=== PATIENT | female | born 2000 | race American Indian/Alaskan Native ===

== ENCOUNTER 2021-12-28 21:17 | Emergency (ER) | payer MEDICAID ==
[2021-12-28 22:17] VITALS: BP 99/68
[2021-12-28 23:26] LABS: Basophils % (Auto) 0.3 % (0.0-1.8); Eosinophils # (Auto) 0.2 K/mm3 (0.0-0.4); Eosinophils % (Auto) 2.3 % (0.0-4.3); Hematocrit 38.4 % (30.3-42.9); Hemoglobin 13.2 gm/dl (10.1-14.3); Lymphocytes # (Auto) 3.2 K/mm3 (1.2-5.4); Lymphocytes % (Auto) 44.1 % (13.4-35.0); Mean Corpuscular HGB Conc 34 % (30-34); Mean Corpuscular Volume 91 fl (79-97); Monocytes # (Auto) 0.6 K/mm3 (0.0-0.8); Monocytes % (Auto) 8.4 % (0.0-7.3); Platelet Count 193 K/mm3 (140-440); Red Blood Count 4.22 M/mm3 (3.65-5.03); Red Cell Distribution Width 15.1 % (13.2-15.2)
[2021-12-28 23:50] LABS: Blood Urea Nitrogen 12 mg/dL (7-17); Calcium 9.2 mg/dL (8.4-10.2); Hemolysis Index 12
[2021-12-28 23:51] LABS: BUN/Creatinine Ratio 20
[2021-12-29 01:04] LABS: Bilirubin,Urine NEG (Negative); Blood,Urine MOD (Negative); Color,Urine Yellow (Yellow)
[2021-12-29 01:12] LABS: HCG Qualitative,Urine Negative (Negative)
[2021-12-29 01:13] LABS: Amphetamine Screen,Urine PRESUMPTIVE NEGATIVE; Benzodiazepines Screen,Urine PRESUMPTIVE NEGATIVE; Cannabinoid Screen,Urine PRESUMPTIVE NEGATIVE; Cocaine Screen,Urine PRESUMPTIVE NEGATIVE; Methadone Screen,Urine PRESUMPTIVE NEGATIVE; Opiate Screen,Urine PRESUMPTIVE NEGATIVE
[2021-12-29 01:18] LABS: Mucus,Urine 2+ /HPF
--- NOTE | 2021-12-29 05:16 | Emergency Department Report ---
ED Psych HPI - General Chief Complaint: Psych Stated Complaint: DETOX EVAL Time Seen by Provider: 12/29/21 00:38 Source: patient Mode of arrival: Ambulatory - History of Present Illness Initial Comments: Patient is a 21-year-old female presenting to ED with thoughts of harming he rself and others. - Related Data Allergies Allergy/AdvReac Type Severity Reaction Status Date / Time No Known Allergies Allergy Unverified 12/28/21 22:17 ED Review of Systems ROS: Stated complaint: DETOX EVAL Other details as noted in HPI Constitutional: denies: chills, fever Respiratory: denies: cough, shortness of breath, wheezing Cardiovascular: denies: chest pain, palpitations Gastrointestinal: denies: abdominal pain, nausea, diarrhea Genitourinary: denies: urgency, dysuria, discharge Musculoskeletal: denies: back pain, joint swelling, arthralgia Skin: denies: rash, lesions Neurological: denies: headache, weakness, paresthesias Psychiatric: denies: anxiety, depression ED Past Medical Hx - Social History Smoking Status: Current Some Day Smoker ED Physical Exam - General Limitations: No Limitations General appearance: alert, in no apparent distress - Head Head exam: Present: atraumatic, normocephalic - Respiratory Respiratory exam: Present: normal lung sounds bilaterally. Absent: respiratory distress - Cardiovascular Cardiovascular Exam: Present: regular rate, normal rhythm, normal heart sounds - GI/Abdominal GI/Abdominal exam: Present: soft. Absent: distended, tenderness - Rectal Rectal exam: Present: deferred - Neurological Exam Neurological exam: Present: alert, oriented X3, CN II-XII intact - Psychiatric Psychiatric exam: Present: homicidal ideation, suicidal ideation - Skin Skin exam: Present: warm, dry, intact, normal color ED Course Vital Signs 12/28/21 12/29/21 22:15 01:31 Temperature 98.3 F Pulse Rate 74 Respiratory 16 Rate Blood Pressure 99/68 O2 Sat by Pulse 100 97 Oximetry ED Medical Decision Making - Lab Data Result diagrams: 12/28/21 23:07 12/28/21 23:07 - Medical Decision Making Labs unremarkable. Patient medically cleared. 1013 signed. Awaiting mental health evaluation Critical care attestation.: If time is entered above; I have spent that time in minutes in the direct care of this critically ill patient, excluding procedure time. ED Disposition Clinical Impression: Suicidal ideation, Homicidal ideation Disposition: 30 STILL A PATIENT Is pt being admited?: No Condition: Stable
--- NOTE | 2021-12-29 09:25 | Consultation ---
History of Present Illness - Reason for Consult Consult date: 12/29/21 Reason for consult: SI - History of Present Psychiatric Illness The patient was seen today. She is irritable and reluctant to cooperate. She is rude. The patient is evasive. She says she is from [facility]. I ask her what was substance was she there for. She initially says "I wasn't ad dicted to anything so I don't know why I'm there. I didn't relapse on nothing." She then says "well I was on RP 15." I ask the patient what was that. She replies "aren't you a doctor. It's something like Soniya." She is asking to go smoke. I inform the patient that this is a smoke free facility and I would give her a patch. The patient denies SI/HI. I ask her was she when she came in. She says "I need to talk to somebody about my medicine. I have ADHD and Bipolar." She says she takes sertraline, concerta and risperidone. She says "you don't have to give me the Concerta, but I'll take another ADHD med." I inform the patient she has to get that from per outpatient provider. She becomes irritable. REVIEW OF SYSTEMS Constitutional: Negative for weight loss ENT: Negative for stridor Respiratory: Negative for cough or hemoptysis All other systems reviewed and are negative MENTAL STATUS EXAMINATION General Appearance and Behavior: Age appropriate, wearing appropriate clothes, reluctant to cooperate, irritable, evasive Cooperation: reluctant to cooperative Psychomotor Behavior: Psychomotor normal Mood: fine Affect and affective range: congruent with stated affect Thought Process: goal directed Thought Content: None Speech: Normal volume, Regular rate and rhythm Suicidal Ideation: Denies Homicidal Ideation: Denies Hallucination: Denies Delusions: Denies Impulse Control: Limited Insight and Judgment: Limited Memory: Limited Attention: distracted Orientation: a/o x 3 Diagnoses: Bipolar Disorder Treatment Plan Zoloft 25mg po daily Risperidone 0.5mg po BID Medical: per primary Sitter: defer to primary Disposition: Do not recommend acute psychiatric inpatient treatment. The patient understands that if SI/HI arise she is to seek immediate assistance The water and fire technician to give all necessary outpatient resources including rehab Will sign off. Thanks Case staffed with Dr. Turcios Medications and Allergies Allergies Allergy/AdvReac Type Severity Reaction Status Date / Time No Known Allergies Allergy Unverified 12/28/21 22:17 Mental Status Exam - Vital signs Last Vital Signs Temp 98.3 F 12/28/21 22:15 Pulse 74 12/28/21 22:15 Resp 16 12/28/21 22:15 BP 99/68 12/28/21 22:15 Pulse Ox 97 12/29/21 01:31 Results Result Diagrams: 12/28/21 23:07 12/28/21 23:07 Abnormal lab results 12/28/21 12/28/21 12/28/21 Range/Units 23:07 23:07 23:07 Lymph % (Auto) 44.1 H (13.4-35.0) % King % (Auto) 8.4 H (0.0-7.3) % Chloride 110.0 H (98-107) mmol/L U Epithel Cells (Auto) (0-13.0) /HPF Salicylates < 0.3 L (2.8-20.0) mg/dL Acetaminophen (10.0-30.0) ug/mL 12/28/21 12/29/21 Range/Units 23:07 00:37 Lymph % (Auto) (13.4-35.0) % King % (Auto) (0.0-7.3) % Chloride (98-107) mmol/L U Epithel Cells (Auto) 20.0 H (0-13.0) /HPF Salicylates (2.8-20.0) mg/dL Acetaminophen 5.0 L (10.0-30.0) ug/mL All other labs normal.
== END 2021-12-29 18:54 | disposition still patient (30) ==
LOC: ED 21:17
DX: R45.851 Suicidal ideations (principal); R45.850 Homicidal ideations
CPT/HCPCS: 36415; 80048; 80307; 80320; 81001; 81025; 85025; 99284; G0480